=== PATIENT | female | born 2005 | race Hispanic/Latino ===

== ENCOUNTER 2025-05-06 21:12 | Emergency (ER) | payer OTHER ==
[~2025-05-06] VITALS: Ht 154.9 cm; Wt 75.0 kg
[2025-05-06] MEDS: diphenhydrAMINE 50 MG/ML VIAL IV ONE (22:34)
[2025-05-06] MEDS: NS (Normal Saline) 0.9% 1,000 ML IV ONE (22:34)
[2025-05-06 22:40] LABS: PLATELET COUNT, AUTOMATED 338 10^3/uL (150-450)
[2025-05-06 22:46] LABS: ERYTHROCYTE SEDIMENTATION RATE 18 mm/hr (0-20)
[2025-05-06 23:09] LABS: C REACTIVE PROTEIN QUANTITATIV < 0.50 MG/DL (<1.0)
[2025-05-06 23:29] LABS: ALT/SGPT 15 U/L (7.0-40); AST/SGOT 20 U/L (<34); CALCIUM LEVEL 9.4 MG/DL (8.5-10.1); CARBON DIOXIDE LEVEL 23 MMOL/L (20-31); CHLORIDE LEVEL 106 MMOL/L (98-107); CREATININE FOR GFR 0.66 MG/DL (0.55-1.30); GLOMERULAR FILTRATION RATE > 90.0 (>60); MAGNESIUM LEVEL 1.9 MG/DL (1.8-2.4); POTASSIUM SERUM 4.2 MMOL/L (3.5-5.1); SODIUM LEVEL 139 MMOL/L (136-145)
[2025-05-06 23:36] LABS: HCG, SERUM QUALITATIVE NEGATIVE (NEGATIVE)
[2025-05-07 00:26] VITALS: BP 94/65; TEMP 97.6; O2SAT 97
== END 2025-05-07 00:25 | disposition home or self-care (01) ==
LOC: M ED 21:12
DX: R51.9 Headache, unspecified (principal); F43.10 Post-traumatic stress disorder, unspecified; Z91.018 Allergy to other foods
CPT/HCPCS: 70450; 80048; 80076; 83735; 84703; 85027; 85652; 86140; 96361; 96374; 99284; J1200; J2765